=== PATIENT | male | born 1955 | race African-American/Black ===

== ENCOUNTER 2016-09-11 13:21 | Emergency (ER) | payer BC ==
--- NOTE | 2016-09-11 14:37 | ERNOTE ---
Medical Problem HPI - Narrative Date of Service: 09/11/16 - General Chief Complaint: Flu Symptoms Time Seen by Provider: 09/11/16 14:10 Source: patient Exam Limitations: no limitations - Immun/Allergies/Home Medications Immunizations: IMMUNIZATION HX Immunizations Up to Date Yes History of Influenza Vaccine No Hx Pneumococcal Vaccination No Allergies/Adverse Reactions: Allergies Iodine and Iodide Containing Produc Allergy (Intermediate, Verified 09/11/16 13: 59) Sulfa (Sulfonamide Antibiotics) Allergy (Unknown, Verified 09/11/16 13:58) Home Medications: HOME MEDICATIONS Gentamicin Sulfate [Gentamicin 0.3% Ophthalmic Solution] 1 drop EACHEYE QID #1 btl 09/11/16 [Last Taken Unknown] HYDROcodone/ACETAMINOPHEN [[place] 5-325] 1 each PO QID PRN #30 tablet 09/11/16 [ Last Taken Unknown] Levofloxacin [Levaquin] 500 mg PO DAILY #10 tab 09/11/16 [Last Taken Unknown] Lisinopril [Zestril] 10 mg PO DAILY 09/11/16 [Last Taken Unknown] - History of Present History Narrative: Sick for 8 days with a cough and sore throat. Hasn't checked his temperature. Has felt cold and hot, but no shaking chills. A few days ago, developed watery discharge and pain in his left eye, and now his lids are sticking together on that side. He has been using a vasoconstrictive eye drop over the counter for this problem. He also developed left ear pain a few days ago. He has been using overthecounter ear drops. He doesn't recall the name. He is using alkaseltzer. His cough is productive of green phlegm. Review of Systems - Review of Systems Constitutional: Present: chills, diaphoresis, fatigue, malaise, decreased activity level EYE: Present: eye discharge, tearing ENT: Present: nose congestion, nasal drainage, sore throat Respiratory: Present: cough Cardiology: Present: no symptoms reported Gastrointestinal/Abdominal: Present: no symptoms reported Genitourinary: Present: no symptoms reported Musculoskeletal: Present: muscle pain, muscle stiffness Neurological: Present: headache Endocrine: Present: no symptoms reported Hematologic/Lymphatic: Present: no symptoms reported Psych: Present: no symptoms reported All Other Systems: All systems neg except as marked - Patient's Past Medical History Patient History - Medical: No pertinent hx Patient History - Cardiac/Respiratory: Hypertension Patient History - Cancer: No Hx of Cancer Patient History - Surgical Procedures: No surgical history Patient History - Other: None - Social History Living Situations: alone Abuse History: No History of abuse Psych History: No pertinent hx Smoking Status: Former smoker Do you dip or chew tobacco: No Alcohol Use: rarely Drug Use: none - Immunizations Immunizations Up to Date: Yes Hx Pneumococcal Vaccination: No History of Influenza Vaccine: No Physical Exam - Physical Exam General Appearance: Present: wd/wn, alert, no apparent distress Eye Exam: Normal inspection: right, PERRL: right, EOMI: right, Eye drainage: left, Eyelid inflammation: left Ears, Nose, Throat: Present: normal ENT inspection, nasal congestion, pharyngeal erythema Neck: Present: normal inspection, nontender. Absent: lymphadenopathy (R), lymphadenopathy (L) Respiratory: Present: no respiratory distress, normal breath sounds, no accessory muscle use Cardiovascular/Chest: Present: regular rate, rhythm, no murmur Gastrointestinal/Abdominal: Present: normal bowel sounds, nontender, nondistended, soft, no organomegaly Back Exam: Present: normal inspection Extremity Exam: Present: normal inspection, no edema Neurological Exam: Present: alert, oriented, normal mood/affect Skin Exam: Present: normal color, warm/dry ED Progress - Results and Orders Patient's Lab Results:: I have reviewed the patient's lab results. - Vital Signs Patient's Vital Signs:: I have reviewed the patient's vital signs. Vital Signs: Vital Signs 09/11/16 13:50 Temperature 37.0 C Pulse Rate 78 Respiratory 15 Rate Blood Pressure 149/87 O2 Sat by Pulse 97 Oximetry - Progress/Reassessment Chief Complaint: Flu Symptoms Departure - Departure Clinical Impression: [place] eye disease of left eye Sinusitis Qualifiers: Sinusitis location: unspecified location Chronicity: acute Recurrence: non- recurrent Qualified Code(s): J01.90 - Acute sinusitis, unspecified Disposition: Home self-care Condition: Good Instructions: Sinusitis, Adult, [id number], Bacterial Conjunctivitis, Easy-to -Read Additional Instructions: Followup with your doctor in 1-2 weeks. Referrals: Dwight Cruz MD [Primary Care Provider] - Prescriptions: Gentamicin Sulfate [Gentamicin 0.3% Ophthalmic Solution] 1 drop EACHEYE QID #1 btl HYDROcodone/ACETAMINOPHEN [[place] 5-325] 1 each PO QID PRN #30 tablet PRN Reason: cough Levofloxacin [Levaquin] 500 mg PO DAILY #10 tab
[2016-09-11 14:48] VITALS: BP 162/90
== END 2016-09-11 14:45 | disposition home or self-care (01) ==
LOC: ER 13:21
DX: H10.022 Other mucopurulent conjunctivitis, left eye (principal); J01.90 Acute sinusitis, unspecified; Z87.891 Personal history of nicotine dependence